=== PATIENT | male | born 1985 | race Two or more races ===

== ENCOUNTER → 2017-04-30 | Outpatient (CLI) | payer BC | END | disposition home or self-care (01) | LOC: KCIC 13:58 | DX: S39.82XA Other specified injuries of lower back, initial encounter (principal); S79.912A Unspecified injury of left hip, initial encounter (principal); M43.8X6 Other specified deforming dorsopathies, lumbar region; M54.5 Low back pain; X58.XXXA Exposure to other specified factors, initial encounter; Y93.89 Activity, other specified; Y92.89 Other specified places as the place of occurrence of the external cause; Y99.8 Other external cause status | CPT/HCPCS: 72110; 73502 ==

== ENCOUNTER 2017-06-05 02:36 | Emergency (ER) | payer BC ==
[2017-06-05] MEDS: LIDOCAINE (700MG/PATCH) PATCH. TD ×2 (03:00)
== END 2017-06-05 03:05 | disposition home or self-care (01) ==
LOC: ER 02:36
DX: M54.42 Lumbago with sciatica, left side (principal)
CPT/HCPCS: 99282

== ENCOUNTER 2020-06-20 11:56 | Emergency (ER) | payer BC, OTHER ==
[~2020-06-20] VITALS: Ht 177.8 cm; Wt 116.0 kg
[~2020-06-20 11:56] MED LIST: LIDO700A21 TP
[2020-06-20] MEDS ORDERED: IV NORMAL SALINE 1000ML BAG 1,000 ML IV ONE (12:30)
[2020-06-20 12:53] LABS: BASO % 0 % (0-3); EOS # 0.1 x10^3/uL (0.0-0.7); EOS % 0 % (0-3); HEMATOCRIT 48.3 % (39.0-53.0); HEMOGLOBIN 16.5 g/dL (13.0-17.5); LYMPH # 1.9 x10^3/uL (1.0-4.8); LYMPH % 15 % (24-48); MEAN CORPUSCULAR HEMOGLOBIN 33 pg (25-35); MEAN CORPUSCULAR HGB CONC 34 g/dL (31-37); MEAN CORPUSCULAR VOLUME 95 fL (79-100); MONO # 0.6 x10^3/uL (0.0-1.1); MONO % 5 % (0-9); NEUT # 9.9 x10^3/uL (1.8-7.7); NEUT % 79 % (31-73); PLATELET COUNT 217 x10^3/uL (140-400); RED BLOOD COUNT 5.09 x10^6/uL (4.30-5.70); RED CELL DISTRIBUTION WIDTH 12.7 % (11.5-14.5); WHITE BLOOD COUNT 12.6 x10^3/uL (4.0-11.0)
[2020-06-20 12:58] LABS: BILIRUBIN,URINE NEGATIVE (NEG); CLARITY,URINE CLEAR; COLOR,URINE YELLOW; NITRITE,URINE NEGATIVE (NEG); PROTEIN,URINE NEGATIVE (NEG-TRACE); UROBILINOGEN,URINE 0.2 mg/dL (0.2 mg/dL)
[2020-06-20 13:01] LABS: CALCIUM 8.7 mg/dL (8.5-10.1); CREATININE 0.9 mg/dL (0.7-1.3); GFR 97.2
[2020-06-20 13:05] LABS: BACTERIA,URINE 0 /HPF (0-FEW); BARBITURATES NEG (NEG); BENZODIAZEPINES NEG (NEG); CANNABINOIDS POS (NEG); COCAINE NEG (NEG); METHADONE NEG (NEG); OPIATES NEG (NEG); PHENCYCLIDINE NEG (NEG); RBC,URINE 0 /HPF (0-2); WBC,URINE 0 /HPF (0-4)
[2020-06-20 13:06] LABS: ALBUMIN 3.7 g/dL (3.4-5.0); DIRECT BILIRUBIN 0.1 mg/dL (0.0-0.2); TOTAL BILIRUBIN 0.4 mg/dL (0.2-1.0); TOTAL PROTEIN 7.5 g/dL (6.4-8.2)
[2020-06-20 13:10] LABS: AMPHETAMINE/METHAMPHETAMINE NEG (NEG)
[2020-06-20] MEDS ORDERED: IOHEXOL 300 MG/ML 100ML VIAL. IV ONE (13:15)
[2020-06-20] MEDS ORDERED: CONTRAST GIVEN. MC PRN (13:15)
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
[2020-06-20] MEDS ORDERED: ONDANSETRON PF 4 MG/2 ML VIAL. IVP ONE (13:30)
[2020-06-20] MEDS ORDERED: MORPHINE SULFATE 4 MG/ML VIAL. IV ONE (13:30)
[2020-06-20] MEDS ORDERED: DIPH,PERTUSS(ACELL),TET VAC/PF 0.5 ML SYRINGE. VAX IM ONE (14:15)
[2020-06-20 15:21] VITALS: BP 138/72
[2020-06-20] MEDS ORDERED: HYDR-2759 PO (15:24)
== END 2020-06-20 15:36 | disposition home or self-care (01) ==
LOC: ER 11:56
DX: S00.83XA Contusion of other part of head, initial encounter (principal); R07.89 Other chest pain; M54.2 Cervicalgia; R10.9 Unspecified abdominal pain; Z87.891 Personal history of nicotine dependence; V49.9XXA Car occupant (driver) (passenger) injured in unspecified traffic accident, initial encounter; Y93.89 Activity, other specified; Y92.413 State road as the place of occurrence of the external cause; Y99.8 Other external cause status
CPT/HCPCS: 36415; 70450; 70486; 71260; 72125; 74177; 80048; 80076; 80307; 81001; 85025; 86850; 86900; 86901; 90471; 90715; 96361; 96374; 96375; 99285; G0480; J2270; J2405; J7030; Q9967